=== PATIENT | female | born 1970 | race Caucasian/White ===

== ENCOUNTER 2024-09-10 07:52 | Day surgery (SDC) | payer BC ==
[2024-09-07 14:48] LABS: BASOPHILS # (AUTO) 0.1 X10'3 (0-0.2); BASOPHILS % (AUTO) 1.3 % (0-1); EOSINOPHILS # (AUTO) 0.5 X10'3 (0-0.9); EOSINOPHILS % (AUTO) 5.4 % (0-6); LYMPHOCYTES # (AUTO) 2.8 X10'3 (1.1-4.8); LYMPHOCYTES % (AUTO) 31.7 % (21-51); MEAN CORPUSCULAR HEMOGLOBIN 32.3 PG (27.0-31.0); MEAN CORPUSCULAR HGB CONC 34.2 g/dL (33.0-36.5); MEAN CORPUSCULAR VOLUME 94.4 FL (78-98); MEAN PLATELET VOLUME 7.7 FL (7.4-10.4); MONOCYTES # (AUTO) 0.5 X10'3 (0-0.9); MONOCYTES % (AUTO) 5.8 % (2-12); NEUTROPHILS # (AUTO) 4.9 X10'3 (1.8-7.7); NEUTROPHILS % (AUTO) 55.8 % (42-75); PRE OP HEMOGLOBIN 14.3 g/dL (12.0-16.0); PRE OP PLATELET COUNT 330 X10'3 (140-440); PRE OP WHITE BLOOD COUNT 8.8 10'3 (4.8-10.8); RED BLOOD COUNT 4.44 X10'6 (4.20-5.60); RED CELL DISTRIBUTION WIDTH 13.8 % (11.5-14.5)
[2024-09-07 15:01] LABS: ALBUMIN 3.7 G/DL (3.4-5.0); ALBUMIN/GLOBULIN RATIO 1.1 (1.1-1.5); ALKALINE PHOSPHATASE 106 IU/L (46-116); BLOOD UREA NITROGEN 11 MG/DL (7-18); BUN/CREATININE RATIO 15.5 (10.0-20.0); CHLORIDE 105 MMOL/L (99-107); CREATININE 0.71 MG/DL (0.40-0.90); PRE OP ALT 33 U/L (30-65); PRE OP ANION GAP 11 (8-16); PRE OP AST 25 U/L (10-37); PRE OP BILIRUB, TOTAL 0.5 MG/DL (0.0-1.0); PRE OP GLUCOSE 87 MG/DL (70-104); PRE OP SODIUM 141 MMOL/L (135-145); TOTAL CARBON DIOXIDE 25.5 MMOL/L (24-32); TOTAL PROTEIN 7.2 G/DL (6.4-8.2); eGFR 86 ML/MIN
[2024-09-07 15:17] LABS: PRE OP POTASSIUM 3.9 MMOL/L (3.4-5.1)
[2024-09-10] VITALS (10 sets, daily range): BP systolic 105–127; BP diastolic 72–89; PULSE 80–95; RESP 14–19; TEMP 98.8; O2SAT 95–100
[~2024-09-10] VITALS: Ht 165.1 cm; Wt 98.8 kg
[2024-09-10] MEDS: ceFAZolin 2gm in dextrose, iso 50 ML IV ONE (05:30)
[~2024-09-10 07:52] MED LIST: BUPIVAcaine 2.5mg/ml inj 50ml vial (contains preservative) ONE; BUPIVAcaine HCl 0.25%/EPInephrine 1:200,000 inj. 10 ML VIAL ONE; CHOL500049 PO; LIDOcaine 1% (10mg/ml)w/preservative inj. 20ml MDV ONE; OLME5TAB29 PO
[2024-09-10] MEDS: famotidine 20mg tablet PO ONE (08:25)
[2024-09-10] MEDS: ringers solution, lacted 1,000 ML IV SCH (08:26)
[2024-09-10] MEDS ORDERED: sevoflurane 250ml liquid IH ONE (10:03)
[2024-09-10] MEDS ORDERED: fentaNYL/PF 50MCG/1 ML 2ML syringe ONE (10:08)
[2024-09-10] MEDS ORDERED: midazolam 1 mg/ML 2ml injection ONE (10:08)
[2024-09-10] MEDS ORDERED: propofol inj 20 ML IV ONE (10:10)
[2024-09-10] MEDS ORDERED: ondansetron/PF 4mg/2ml inj IV PRN (10:35)
[2024-09-10] MEDS ORDERED: morphine 4 MG/ML inj SYRINge IV PRN (10:35)
[2024-09-10] MEDS ORDERED: ringers solution, lacted 1,000 ML IV SCH (10:35)
[2024-09-10] MEDS ORDERED: meperidine/PF 25mg/ml syringe IV PRN ×2 (10:35)
[2024-09-10] MEDS ORDERED: proCHLORperazine 10 MG/2 ml inj IV PRN (10:35)
[2024-09-10] MEDS ORDERED: morphine 2 MG/ML inj. syringe IV PRN (10:35)
[2024-09-10] MEDS: meperidine/PF 25mg/ml syringe IV PRN (11:17)
== END 2024-09-10 12:21 | disposition home or self-care (01) ==
LOC: PAS 07:52
PROVIDERS: ATTEND Surgery
DX: R92.8 Other abnormal and inconclusive findings on diagnostic imaging of breast (principal); N60.11 Diffuse cystic mastopathy of right breast; N62 Hypertrophy of breast; N60.21 Fibroadenosis of right breast; I10 Essential (primary) hypertension; F41.9 Anxiety disorder, unspecified; Z87.891 Personal history of nicotine dependence; Z79.891 Long term (current) use of opiate analgesic; Z79.899 Other long term (current) drug therapy; Z90.710 Acquired absence of both cervix and uterus; Z98.891 History of uterine scar from previous surgery; Z98.890 Other specified postprocedural states; Z88.8 Allergy status to other drugs, medicaments and biological substances
CPT/HCPCS: 19301; 36415; 80053; 82948; 85025; 93005; J0690; J1100; J2175; J2250; J2405; J2704; J3010; J3490; J7030; J7120; Z7506; Z7512; A4215; A4618; A6258; A6449; A7000

== ENCOUNTER 2024-10-19 16:48 | Emergency (ER) | payer BC ==
[~2024-10-19] VITALS: Ht 165.1 cm; Wt 81.3 kg
[~2024-10-19 16:48] MED LIST changes: -BUPIVAcaine 2.5mg/ml inj 50ml vial (contains preservative) ONE; -BUPIVAcaine HCl 0.25%/EPInephrine 1:200,000 inj. 10 ML VIAL ONE; -LIDOcaine 1% (10mg/ml)w/preservative inj. 20ml MDV ONE
[2024-10-19 16:57] VITALS: TEMP 97.5
[2024-10-19] MEDS: ketorolac trometh 30MG/ML vial 30 MG/ML VIAL IM ONE (19:59)
[2024-10-19] MEDS: dexamethasone sod phosphate 10mg/ml inj IM STA (19:59)
[2024-10-19] MEDS ORDERED: LIDO700A32 TOP (21:50)
[2024-10-19] MEDS ORDERED: BACI1PAC7 TOP (21:50)
[2024-10-19] MEDS ORDERED: CEPH-585 PO (21:50)
[2024-10-19 21:55] VITALS: BP 126/80; PULSE 90; RESP 18; O2SAT 99
== END 2024-10-19 21:55 | disposition home or self-care (01) ==
LOC: ER 16:49
DX: S86.912A Strain of unspecified muscle(s) and tendon(s) at lower leg level, left leg, initial encounter (principal); L03.116 Cellulitis of left lower limb; Z88.1 Allergy status to other antibiotic agents; X58.XXXA Exposure to other specified factors, initial encounter; Y93.89 Activity, other specified; Y92.89 Other specified places as the place of occurrence of the external cause; Y99.8 Other external cause status
CPT/HCPCS: 93971; 96372; 99285; J1100; J1885